=== PATIENT | female | born 1955 | race Caucasian/White ===

== ENCOUNTER → 2016-12-11 | Outpatient (CLI) | payer BC ==
--- NOTE | 2016-12-14 06:56 | MM ---
Reason for exam: history of breast cancer, mastectomy. Last mammogram was performed 1 year ago. History: Patient is postmenopausal and has history of breast cancer at age 49. Family history of breast cancer in paternal aunt at age 70. Benign right mammotome panel of the right breast, June 01, 2008. Excisional biopsy of the right breast, March 08, 2007. Benign US right core biopsy of the right breast, February 14, 2007. Mastectomy of the left breast, 2004. Chemotherapy, 2004. Radiation therapy, 2004. Took hormonal contraceptives for 6 years beginning at age 22. Physical Findings: Nurse did not find any significant physical abnormalities on exam. MG 3D Diag Mammo W/Cad RT CC and MLO view(s) were taken of the right breast. Prior study comparison: December 06, 2015, right breast MG 3d diag mammo w/cad RT. November 28, 2014, right breast MG diagnostic mammo RT w CAD. The breast tissue is heterogeneously dense. This may lower the sensitivity of mammography. Finding #1: Architectural distortion in the right breast consistent with known lumpectomy. Finding #2: There are typically benign round calcifications in the right breast. Previous mammotome biopsy in the right breast x 2. There is a chronic nodularity in the right breast. There is no discrete abnormality. These results were verbally communicated with the patient and result sheet given to the patient on 12/11/16. ASSESSMENT: Benign, BI-RAD 2 RECOMMENDATION: Follow-up diagnostic mammogram of the right breast in 1 year.
== END | disposition home or self-care (01) ==
LOC: RADMAMWWP 14:28
PROVIDERS: ATTEND Internal Medicine Hematology & Oncology
DX: Z85.3 Personal history of malignant neoplasm of breast (principal)
CPT/HCPCS: G0206; G0279

== ENCOUNTER → 2018-02-24 | Outpatient (CLI) | payer BC ==
--- NOTE | 2018-02-25 07:01 | XR ---
EXAMINATION TYPE: XR cervical spine comp DATE OF EXAM: 02/24/2018 TECHNIQUE: Frontal, lateral, oblique, and open mouth view of the cervical spine are obtained. HISTORY: M47.892 cervical spondylosis DJD with pain per patient. COMPARISON: None FINDINGS: The cervical spine is visualized in its entirety from C1 thru the top of T1 level, there i s reversal of normal cervical curvature centered at C4-C5 level without evidence of acute fracture or dislocation. There is grade 1 anterolisthesis of C3 on C4 and grade 1 retrolisthesis of C5 on C6 The pre-vertebral soft tissue appears within normal limits. The C1-C2 articulation is within normal blackwell its on the open mouth view. Vertebral body heights are maintained. There is moderate disc space narro wing and spurring C4-C5 level. There is advanced disc space narrowing with moderate spurring C5-C6 le brennan. There is mild to moderate disc space narrowing C6-C7 level . The oblique images show some neural foraminal encroachment bilaterally worse on right side due to marginal osteophytes mid cervical leve ls. Overlying soft tissue is unremarkable. IMPRESSION: Loss of normal cervical curvature with multilevel degenerative changes seen as detailed a wai.
== END | disposition home or self-care (01) ==
LOC: RADXRMAIN 15:31
PROVIDERS: ATTEND Internal Medicine Geriatric Medicine
DX: M48.02 Spinal stenosis, cervical region (principal); M43.12 Spondylolisthesis, cervical region; M47.812 Spondylosis without myelopathy or radiculopathy, cervical region
CPT/HCPCS: 72050

== ENCOUNTER → 2018-02-26 | Outpatient (CLI) | payer BC ==
[2018-02-26 09:14] LABS: Basophils # (A) 0.1 k/uL (0-0.2); Basophils % (A) 1 %; Eosinophils # (A) 0.2 k/uL (0-0.7); Eosinophils % (A) 4 %; HCT 43.8 % (34.0-46.0); HGB 14.5 gm/dL (11.4-16.0); Lymphocytes # (A) 1.9 k/uL (1.0-4.8); Lymphocytes % (A) 37 %; MCH 29.8 pg (25.0-35.0); MCV 90.2 fL (80.0-100.0); Mean Platelet Volume 6.7; Monocytes # (A) 0.4 k/uL (0-1.0); Monocytes % (A) 7 %; Neutrophils # (A) 2.5 k/uL (1.3-7.7); Neutrophils % (A) 48 %; Platelet Count 246 k/uL (150-450); RBC 4.86 m/uL (3.80-5.40); RDW 13.4 % (11.5-15.5); WBC 5.2 k/uL (3.8-10.6)
[2018-02-26 10:08] LABS: T4, Free (Free Thyroxine) 1.03 ng/dL (0.78-2.19)
[2018-02-26 10:28] LABS: Glucose 80 mg/dL (74-99)
[2018-02-26 10:29] LABS: ALT 20 U/L (9-52); AST 21 U/L (14-36); Albumin 4.1 g/dL (3.5-5.0); Alkaline Phosphatase 61 U/L (38-126); Anion Gap 9 mmol/L; Blood Urea Nitrogen 20 mg/dL (7-17); Calcium 9.6 mg/dL (8.4-10.2); Carbon Dioxide 30 mmol/L (22-30); Chloride 105 mmol/L (98-107); Cholesterol 158 mg/dL (<200); Creatine Kinase 41 U/L (30-135); Magnesium 2.1 mg/dL (1.6-2.3); Potassium 4.2 mmol/L (3.5-5.1); Sodium 144 mmol/L (137-145); Total Bilirubin 0.5 mg/dL (0.2-1.3); Total Protein 6.7 g/dL (6.3-8.2); Uric Acid 4.3 mg/dL (3.7-7.4)
[2018-02-26 10:30] LABS: HDL Cholesterol 57 mg/dL (40-60); LDL Cholesterol,Calculated 88 mg/dL (0-99); Triglycerides 65 mg/dL (<150)
[2018-02-26 11:01] LABS: Appearance,Urine Clear (Clear); Bilirubin,Urine Negative (Negative); Blood,Urine Negative (Negative); Color,Urine Yellow; Glucose,Urine (UA) Negative (Negative); Ketones,Urine Negative (Negative); Leukocyte Esterase,Urine Negative (Negative); Nitrite,Urine Negative (Negative); Protein,Urine Negative (Negative); Specific Gravity,Urine 1.016 (1.001-1.035); Urobilinogen,Urine <2.0 mg/dL (<2.0)
[2018-02-26 21:41] LABS: Hemoglobin A1C 5.6 % (4.0-6.0)
== END | disposition home or self-care (01) ==
LOC: LABWHC1 08:14
PROVIDERS: ATTEND Internal Medicine
DX: Z00.00 Encounter for general adult medical examination without abnormal findings (principal); I10 Essential (primary) hypertension; E55.9 Vitamin D deficiency, unspecified; E03.9 Hypothyroidism, unspecified
CPT/HCPCS: 36415; 80053; 80061; 81003; 82306; 82550; 83036; 83735; 84439; 84443; 84550; 85025

== ENCOUNTER → 2018-03-07 | Outpatient (CLI) | payer BC ==
--- NOTE | 2018-03-08 08:53 | BD ---
EXAMINATION TYPE: MG DEXA axial skeleton. DATE OF EXAM: 03/07/2018 COMPARISON: DEXA bone scan February 28, 2013 CLINICAL HISTORY: Postmenopausal female Height: 68.5 IN Weight: 176 LBS FRAX RISK QUESTIONS: Alcohol (3 or more units per day): NO Family History (Parent hip fracture): NO Glucocorticoids (More than 3mos): NO (Ex: prednisone, prednisolone, methylprednisolone, dexamethasone, and hydrocortisone). History of Fracture in Adulthood: NO Secondary Osteoporosis: 1. Type 1 Diabetes: NO 2. Hyperthyroidism: NO 3. Menopause before 45: NO AGE 58 4. Malnutrition: NO 5. Chronic liver disease: NO Rheumatoid Arthritis: NO Current Tobacco Use: NO RISK FACTORS HISTORY OF: Active: YES Postmenopausal woman: AGE 58 MEDICATIONS: Thyroid Medications: YES Which medication: Synthroid How Lon YEARS Osteoporosis Medications: NOT NOW Which medication: Boniva How Long: AGE 56 - 58 Additional Medications: VIT D, SYNTHROID, LISINOPRIL, SINGULAIR, NAPROXEN, PEPCID Additional History: PT HAD BREAST CANCER WITH CHEMO AND RADIATION IN 2004 EXAM MEASUREMENTS: Bone mineral densitometry was performed using the [employer] System. Bone mineral density as measured about the Lumbar spine is: ----- L1-L4(G/cm2): 1.000 T Score Values are as follows: ----- L2: -1.8 ----- L3: -1.4 ----- L4: -1.4 ----- L1-L4: -1.5 Bone mineral density has: Decreased -3.5% since study of: 02/28/2013 Bone mineral density about the R hip (g/cm2): 0.936 Bone mineral density about the L hip (g/cm2): 0.933 T Score values are as follows: -----R Neck: -0.7 -----L Neck: -0.8 -----R Total: -0.9 -----L Total: -1.2 Bone mineral density has: Decreased -4.5% since study of: 02/28/2013 IMPRESSION: Osteopenia (T Score between -2.5 and -1) persists overall in the low back. Bone density is decreased or diminished from prior. There is slightly increased risk of fracture and the patient may be considered for treatment. Re-Screen 2-5 years. NOTE: T-SCORE=SD OF THE YOUNG ADULT MEAN.
== END | disposition home or self-care (01) ==
LOC: RADBDWWP 15:26
PROVIDERS: ATTEND Internal Medicine
DX: M85.88 Other specified disorders of bone density and structure, other site (principal)
CPT/HCPCS: 77080

== ENCOUNTER → 2018-12-14 | Outpatient (CLI) | payer BC ==
--- NOTE | 2018-12-15 08:57 | MM ---
Reason for exam: additional evaluation requested from prior study. Last mammogram was performed 1 year ago. History: Patient is postmenopausal and has history of breast cancer at age 49. Family history of breast cancer in paternal aunt at age 70. Benign right mammotome panel of the right breast, June 01, 2008. Excisional biopsy of the right breast, March 08, 2007. Benign US right core biopsy of the right breast, February 14, 2007. Mastectomy of the left breast, 2004. Chemotherapy, 2004. Radiation therapy, 2004. Took hormonal contraceptives for 6 years beginning at age 22. Physical Findings: Nurse did not find any significant physical abnormalities on exam. MG 3D Diag Mammo W/Cad RT CC and MLO view(s) were taken of the right breast. Prior study comparison: December 13, 2017, right breast MG 3d diag mammo w/cad RT. December 11, 2016, right breast MG 3d diag mammo w/cad RT. The breast tissue is extremely dense which could obscure a lesion on mammography. Stable benign calcifications. Previous mammotome biopsy in the right breast. No significant new findings when compared with previous films. These results were verbally communicated with the patient and result sheet given to the patient on 12/14/18. ASSESSMENT: Benign, BI-RAD 2 RECOMMENDATION: Follow-up diagnostic mammogram of the right breast in 1 year.
== END | disposition home or self-care (01) ==
LOC: RADMAMWWP 15:13
PROVIDERS: ATTEND Internal Medicine Hematology & Oncology
DX: Z08 Encounter for follow-up examination after completed treatment for malignant neoplasm (principal); Z85.3 Personal history of malignant neoplasm of breast
CPT/HCPCS: 77061; 77065

== ENCOUNTER → 2019-04-06 | Outpatient (CLI) | payer BC | LOC: LABWHC1 16:21 | PROVIDERS: ATTEND Physical Medicine & Rehabilitation | DX: G62.82 Radiation-induced polyneuropathy (principal); M79.671 Pain in right foot | CPT/HCPCS: 36415; 82607; 84207 ==

== ENCOUNTER → 2019-12-15 | Outpatient (CLI) | payer BC ==
--- NOTE | 2019-12-15 16:10 | MM ---
Reason for exam: additional evaluation requested from prior study. Last mammogram was performed 1 year ago. History: Patient is postmenopausal and has history of breast cancer at age 49. Family history of breast cancer in paternal aunt at age 70. Benign right mammotome panel of the right breast, June 01, 2008. Excisional biopsy of the right breast, March 08, 2007. Benign US right core biopsy of the right breast, February 14, 2007. Mastectomy of the left breast, 2004. Chemotherapy, 2004. Radiation therapy, 2004. Took hormonal contraceptives for 6 years beginning at age 22. Physical Findings: Nurse did not find any significant physical abnormalities on exam. MG 3D Diag Mammo W/Cad RT CC and MLO view(s) were taken of the right breast. Prior study comparison: December 14, 2018, right breast MG 3d diag mammo w/cad RT. December 13, 2017, right breast MG 3d diag mammo w/cad RT. The breast tissue is extremely dense which could obscure a lesion on mammography. Previous mammotome biopsy in the right and left breast. There is chronic nodularity in the right breast. Moles marked. No significant new findings when compared with previous films. These results were verbally communicated with the patient and result sheet given to the patient on 12/15/19. ASSESSMENT: Benign, BI-RAD 2 RECOMMENDATION: Follow-up diagnostic mammogram of the right breast in 1 year.
== END | disposition home or self-care (01) ==
LOC: RADMAMWWP 15:18
PROVIDERS: ATTEND Internal Medicine Hematology & Oncology
DX: Z08 Encounter for follow-up examination after completed treatment for malignant neoplasm (principal); Z85.3 Personal history of malignant neoplasm of breast
CPT/HCPCS: 77061; 77065

== ENCOUNTER → 2020-05-28 | Outpatient (CLI) | payer BC ==
--- NOTE | 2020-05-28 16:56 | BD ---
EXAMINATION TYPE: Axial Bone Density DATE OF EXAM: 05/28/2020 COMPARISON: Higher DEXA bone scan March 07, 2018. CLINICAL HISTORY: Postmenopausal female. Height: 5 FT 9 IN Weight: 185 FRAX RISK QUESTIONS: Alcohol (3 or more units per day): NO Family History (Parent hip fracture): NO Glucocorticoids (More than 3mos): NO (Ex: prednisone, prednisolone, methylprednisolone, dexamethasone, and hydrocortisone). History of Fracture in Adulthood: NO Secondary Osteoporosis: 1. Type 1 Diabetes: NO 2. Hyperthyroidism: NO 3. Menopause before 45: NO 4. Malnutrition: NO 5. Chronic liver disease: NO Rheumatoid Arthritis: NO Current Tobacco Use: NO RISK FACTORS HISTORY OF: Active: NO Postmenopausal woman: APPROX AGE 58 MEDICATIONS: Thyroid Medications: YES Which medication: LEVOTHYROXINE How Long: APPROX 17 YEARS Additional Medications: LEVOTHYROXINE, LISINOPRIL, SINGULAIR, MUSCLE RELAXER ,PEPCID, Additional History: BREAST CANCER 2004 CHEMO AND RADIATION EXAM MEASUREMENTS: Bone mineral densitometry was performed using the [employer] System. Bone mineral density as measured about the Lumbar spine is: ----- L1-L4(G/cm2): 0.985 T Score Values are as follows: ----- L2: -1.8 ----- L3: -1.3 ----- L4: -1.8 ----- L1-L4: -1.6 Bone mineral density has: DECREASED -1.7 % since study of: 2017 Bone mineral density about the R hip (g/cm2): 0.914 Bone mineral density about the L hip (g/cm2): 0.911 T Score values are as follows: -----R Neck: -0.9 -----L Neck: -0.9 -----R Total: -1.1 -----L Total: -1.0 Bone mineral density has: 0% since study of: 2017 IMPRESSION: Osteopenia (T Score between -2.5 and -1) remains present. Bone density slightly decreased from prior. There remains slightly increased risk of fracture and the patient may be considered for treatment. Re-Screen 2-5 years. NOTE: T-SCORE=SD OF THE YOUNG ADULT MEAN.
== END | disposition home or self-care (01) ==
LOC: RADBDWWP 01-15 13:03
PROVIDERS: ATTEND Internal Medicine
DX: M81.0 Age-related osteoporosis without current pathological fracture (principal)
CPT/HCPCS: 77080

== ENCOUNTER → 2020-12-16 | Outpatient (CLI) | payer BC ==
--- NOTE | 2020-12-16 14:20 | MM ---
Reason for exam: additional evaluation requested from prior study. Last mammogram was performed 1 year ago. History: Patient is postmenopausal and has history of breast cancer at age 49. Family history of breast cancer in paternal aunt at age 70. Benign right mammotome panel of the right breast, June 01, 2008. Excisional biopsy of the right breast, March 08, 2007. Benign US right core biopsy of the right breast, February 14, 2007. Mastectomy of the left breast, 2004. Chemotherapy, 2004. Radiation therapy, 2004. Took hormonal contraceptives for 6 years beginning at age 22. Physical Findings: Nurse did not find any significant physical abnormalities on exam. MG 3D Diag Mammo W/Cad RT CC and MLO view(s) were taken of the right breast. Prior study comparison: December 15, 2019, right breast MG 3d diag mammo w/cad RT. December 14, 2018, right breast MG 3d diag mammo w/cad RT. The breast tissue is heterogeneously dense. This may lower the sensitivity of mammography. Previous mammotome biopsy in the right breast x 2. There is chronic nodularity in the right breast. No significant new findings when compared with previous films. These results were verbally communicated with the patient and result sheet given to the patient on 12/16/20. ASSESSMENT: Benign, BI-RAD 2 RECOMMENDATION: Follow-up diagnostic mammogram of the right breast in 1 year.
== END | disposition home or self-care (01) ==
LOC: RADMAMWWP 13:22
PROVIDERS: ATTEND Internal Medicine Hematology & Oncology
DX: Z08 Encounter for follow-up examination after completed treatment for malignant neoplasm (principal); Z85.3 Personal history of malignant neoplasm of breast
CPT/HCPCS: 77061; 77065

== ENCOUNTER → 2021-12-18 | Outpatient (CLI) | payer BC ==
--- NOTE | 2021-12-19 10:45 | MM ---
Reason for exam: additional evaluation requested from prior study. Last mammogram was performed 1 year ago. History: Patient is postmenopausal and has history of breast cancer at age 49. Family history of breast cancer in paternal aunt at age 70. Benign right mammotome panel of the right breast, June 01, 2008. Excisional biopsy of the right breast, March 08, 2007. Benign US right core biopsy of the right breast, February 14, 2007. Mastectomy of the left breast, 2004. Chemotherapy, 2004. Radiation therapy, 2004. Took hormonal contraceptives for 6 years beginning at age 22. Physical Findings: Nurse did not find any significant physical abnormalities on exam. MG 3D Diag Mammo W/Cad RT CC and MLO view(s) were taken of the right breast. Prior study comparison: December 16, 2020, right breast MG 3d diag mammo w/cad RT. December 15, 2019, right breast MG 3d diag mammo w/cad RT. The breast tissue is heterogeneously dense. This may lower the sensitivity of mammography. Previous mammotome biopsy in the right breast x 2. Superior posterior mole. Chronic nodularity laterally. Punctate grouped calcifications inferior right breast unchanged. These results were verbally communicated with the patient and result sheet given to the patient on 12/18/21. ASSESSMENT: Incomplete: need additional imaging evaluation, BI-RAD 0 RECOMMENDATION: Ultrasound of the right breast. (given left breast history and dense tissues)
--- NOTE | 2021-12-19 10:47 | USB ---
Reason for exam: additional evaluation requested from abnormal screening. History: Patient is postmenopausal and has history of breast cancer at age 49. Family history of breast cancer in paternal aunt at age 70. Benign right mammotome panel of the right breast, June 01, 2008. Excisional biopsy of the right breast, March 08, 2007. Benign US right core biopsy of the right breast, February 14, 2007. Mastectomy of the left breast, 2004. Chemotherapy, 2004. Radiation therapy, 2004. Took hormonal contraceptives for 6 years beginning at age 22. US Breast RT Right complete breast ultrasound includes all four quadrants, the retroareolar region and axilla. Finding demonstrates no cystic or solid lesion seen. Whole breast scanned, very dense. These results were verbally communicated with the patient and result sheet given to the patient on 12/18/21. ASSESSMENT: Benign, BI-RAD 2 RECOMMENDATION: Follow-up diagnostic mammogram of the right breast in 1 year.
== END | disposition home or self-care (01) ==
LOC: RADMAMWWP 13:04
PROVIDERS: ATTEND Internal Medicine Hematology & Oncology
DX: R92.8 Other abnormal and inconclusive findings on diagnostic imaging of breast (principal); Z78.0 Asymptomatic menopausal state; Z85.3 Personal history of malignant neoplasm of breast; Z80.3 Family history of malignant neoplasm of breast
CPT/HCPCS: 77061; 77065

== ENCOUNTER → 2021-12-18 | Outpatient (CLI) | payer BC ==
--- NOTE | 2021-12-18 13:25 | CT ---
EXAMINATION TYPE: CT sinus wo con DATE OF EXAM: 12/18/2021 COMPARISON: NONE HISTORY: Chronic sinusitis. Facial pain per patient. CT DLP: 699 mGycm. Automated Exposure Control for Dose Reduction was Utilized. TECHNIQUE: CT scan of the sinuses is performed without contrast, axial images are obtained, coronal r eformatted images are also reviewed. FINDINGS: The paranasal sinuses including the frontal, ethmoid, sphenoid, and maxillary sinuses bila terally are well-aerated without suspicious opacification or air-fluid levels. Mild residual mucosal thickening in the surgically treated ethmoid sinuses is present. The ostiomeatal surgically treated o stiomeatal complex is patent bilaterally on the coronal images. Visualized portion of mastoid air cells show no abnormal opacification. The globes are intact bilate rally. IMPRESSION: No recurrent acute sinusitis. Surgically treated ostiomeatal complexes are patent bilate rally.
== END | disposition home or self-care (01) ==
LOC: RADCTMAIN 12:38
PROVIDERS: ATTEND Otolaryngology
DX: J32.9 Chronic sinusitis, unspecified (principal)
CPT/HCPCS: 70486

== ENCOUNTER → 2022-03-20 | Outpatient (CLI) | payer BC ==
--- NOTE | 2022-03-23 09:52 | BD ---
EXAMINATION TYPE: Axial Bone Density DATE OF EXAM: 03/20/2022 COMPARISON: Prior DEXA bone scan 2019 CLINICAL HISTORY: 66 years year old Female. ICD-10 CODE: M85.851 OT DISRD OF BONE DENSITY AND STRUC TURE Height: 69 Weight: 169.2 FRAX RISK QUESTIONS: Alcohol (3 or more units per day): NO Family History (Parent hip fracture): NO Glucocorticoids (More than 3mos): NO History of Fracture in Adulthood: NO Secondary Osteoporosis: 1. Type 1 Diabetes: NO 2. Hyperthyroidism: NO 3. Menopause before 45: NO 4. Malnutrition: NO 5. Chronic liver disease: NO Rheumatoid Arthritis: NO Current Tobacco Use: NO RISK FACTORS HISTORY OF: Hip Fracture (Right/Left): NO Spine Fracture: NO History of Wrist Fracture: NO Surgery to Spine/Hip(right/left)/Wrist (right/left): NO Family History of Osteoporosis: NO Active: NO Diet low in dairy products/other sources of calcium: YES Postmenopausal woman: YES Take estrogen and/or progesterone medications: NO Lost more than 2 inches in height since high school: NO Frequent falls: NO Poor Health: NO Hyperparathyroidism: NO Adrenal Insufficiency: NO MEDICATIONS: Prednisone or other steroids: NO Thyroid Medications: SYNTHROID How Lon YEARS Osteoporosis Medications: NO Additional Medications: CALCIUM, SYNTHROID, LISINOPRIL, VIT D, MULTI VIT., Additional History: EXAM MEASUREMENTS: Bone mineral densitometry was performed using the [employer] System. Bone mineral density as measured about the Lumbar spine is: ----- L1-L4(G/cm2): 0.958 T Score Values are as follows: ----- L1: -1.9 ----- L2: -2.1 ----- L3: -1.6 ----- L4: -2.0 ----- L1-L4: -1.9 Bone mineral density has: DECREASED 3.4% since study of: 05/28/2020 Bone mineral density about the R hip (g/cm2): 0.875 Bone mineral density about the L hip (g/cm2): 0.883 T Score values are as follows: -----R Neck: -1.2 -----L Neck: -1.1 -----R Total: -1.2 -----L Total: -1.5 Bone mineral density has: DECREASED 4.9% since study of: 05/28/2020 FRAX%s: The graph provided illustrates a 8.2% chance for a major osteoporotic fx and a 0.7% chance fo r the hips probability for fx in 10 years time. IMPRESSION: Osteopenia (T Score between -2.5 and -1) is redemonstrated. There is slightly increased risk of fracture and the patient may be considered for treatment. Re-Screen 2-5 years. NOTE: T-SCORE=SD OF THE YOUNG ADULT MEAN.
== END | disposition home or self-care (01) ==
LOC: RADBDWWP 14:42
PROVIDERS: ATTEND Internal Medicine
DX: M85.89 Other specified disorders of bone density and structure, multiple sites (principal)
CPT/HCPCS: 77080

== ENCOUNTER → 2023-05-08 | Outpatient (CLI) | payer MEDICARE ==
[2023-05-08 13:34] LABS: Basophils # (A) 0.08 X 10*3/uL (0.00-0.10); Basophils % (A) 1.4 %; Eosinophils # (A) 0.19 X 10*3/uL (0.04-0.35); Eosinophils % (A) 3.4 %; HCT 44.3 % (37.2-46.3); HGB 14.1 d/dL (12.0-15.0); Immature Grans, Automated 0 %; Lymphocytes # (A) 2.12 X 10*3/uL (0.90-5.00); Lymphocytes % (A) 37.4 %; MCH 30.7 pg (27.0-32.0); MCHC 31.8 d/dL (32.0-37.0); MCV 96.5 FL (80.0-97.0); Mean Platelet Volume 9.8 FL (9.5-12.2); Monocytes # (A) 0.45 X 10*3/uL (0.20-1.00); Monocytes % (A) 7.9 %; NRBC Per 100 WBC 0 X 10*3/uL (0.00-0.01); Neutrophils # (A) 2.83 X 10*3/uL (1.80-7.70); Neutrophils % (A) 49.9 %; Platelet Count 286 X 10*3/uL (140-440); RBC 4.59 X 10*6/uL (4.10-5.20); RDW 13.8 % (11.5-14.5); WBC 5.67 X 10*3/uL (4.50-10.00)
[2023-05-08 13:38] LABS: ALT 21 U/L (8-44); AST 18 U/L (13-35); Albumin 4.6 d/dL (3.8-4.9); Alkaline Phosphatase 69 U/L (41-126); BUN/Creat Ratio 24.43 Ratio (12.00-20.00); Blood Urea Nitrogen 17.1 mg/dL (9.0-27.0); Calcium 9.9 mg/dL (8.7-10.3); Carbon Dioxide 29.5 mmol/L (21.6-31.8); Chloride 105 mmol/L (96-109); Chol/HDL Ratio 2.89 Ratio; Globulin 2.3 d/dL (1.6-3.3); Glucose 96 mg/dL (70-110); LDL Cholesterol,Calculated 102.3 mg/dL (0.0-131.0); Magnesium 2.2 mg/dL (1.5-2.4); Potassium 4.7 mmol/L (3.5-5.5); Sodium 144 mmol/L (135-145); Total Bilirubin 0.4 mg/dL (0.3-1.2); Total Protein 6.9 d/dL (6.2-8.2)
[2023-05-08 13:58] LABS: Appearance,Urine Clear (Clear); Bilirubin,Urine Negative (Negative); Blood,Urine Negative (Negative); Color,Urine Yellow (Yellow); Ketones,Urine Negative (Negative); Nitrite,Urine Negative (Negative); PH, Urine 6.5; Specific Gravity,Urine 1.023 (1.001-1.030); Urobilinogen,Urine 0.2 E.U./DL
[2023-05-08 14:04] LABS: Bacteria,Urine None Seen (None Seen)
== END | disposition home or self-care (01) ==
LOC: LABWHC1 08:39
PROVIDERS: ATTEND Internal Medicine
DX: I10 Essential (primary) hypertension (principal); E03.9 Hypothyroidism, unspecified; R30.0 Dysuria; R73.09 Other abnormal glucose
CPT/HCPCS: 36415; 80053; 80061; 81001; 83036; 83735; 85025

== ENCOUNTER → 2023-05-20 | Outpatient (CLI) | payer MEDICARE ==
--- NOTE | 2023-05-20 20:03 | XR ---
EXAMINATION TYPE: XR cervical spine w flex/ext DATE OF EXAM: 05/20/2023 COMPARISON: NONE HISTORY: 67 year-old female [id number] TECHNIQUE: 7 views FINDINGS: No predental space widening or prevertebral soft tissue swelling. Reversal of the normal ce rvical lordosis. Multilevel facet and uncovertebral joint arthropathy is present. Degenerative grade 1 anterolisthesis C3-C4 and C7-T1. Degenerative grade 1 retrolisthesis C5-C6. No d ynamic subluxations seen. There is moderate disc/endplate degenerative change C4-C7 levels. IMPRESSION: 1. Moderate spondylotic change especially C4-C7 levels. 2. Degenerative grade 1 spondylolisthesis C3-C4, C5-C6, and C7-T1 without evidence for dynamic sublux ation.
== END | disposition home or self-care (01) ==
LOC: RADXRMAIN 13:52
PROVIDERS: ATTEND Internal Medicine
DX: M47.812 Spondylosis without myelopathy or radiculopathy, cervical region (principal); M43.12 Spondylolisthesis, cervical region
CPT/HCPCS: 72052

== ENCOUNTER → 2023-12-22 | Outpatient (CLI) | payer MEDICARE ==
--- NOTE | 2023-12-22 21:53 | MM ---
Reason for Exam: Screening (asymptomatic). Last screening mammogram was performed 12 month(s) ago. Patient History: Menarche at age 14. First Full-Term at age 30. Postmenopausal. Patient has history of breast feeding. Breast cancer, left, age 49. Previous chest radiation therapy at age 49. Previous chemotherapy at age 49. Hormonal Contraceptives for 6 years from age 22 until age 28. 03/08/2007, Excisional Biopsy on the Right side. 2004, Mastectomy on the Left side. 06/01/2008, Benign Core Biopsy on the right side. 02/14/2007, Benign Core Biopsy on the right side. 2004, Radiation Therapy. 2004, Chemotherapy. Paternal aunt had breast cancer, age 70. Prior Study Comparison: 12/16/2020 Right Diagnostic Mammogram, [facility]. 12/18/2021 Right Diagnostic Mammogram, [facility]. 12/21/2022 Right MG 3D scr lisa unilateral w/cad., [facility]. Tissue Density: Right: The breast tissue is heterogeneously dense. This may lower the sensitivity of mammography. Findings: 2 microclips from prior biopsies. There is chronic underlying nodularity. There is no suspicious group of microcalcifications or new suspicious mass in either breast. Overall Assessment: Benign, BI-RAD 2 Management: Screening Mammogram of the right breast in 1 year. . Patient should continue monthly self-breast exams. A clinical breast exam by your physician is recommended on an annual basis. This exam should not preclude additional follow-up of suspicious palpable abnormalities. Electronically signed and approved by: Manjit Soto M.D. Radiologist
== END | disposition home or self-care (01) ==
LOC: RADMAMWWP 14:29
PROVIDERS: ATTEND Internal Medicine Hematology & Oncology
DX: Z12.31 Encounter for screening mammogram for malignant neoplasm of breast (principal); Z80.3 Family history of malignant neoplasm of breast; Z85.3 Personal history of malignant neoplasm of breast; Z90.12 Acquired absence of left breast and nipple; Z78.0 Asymptomatic menopausal state
CPT/HCPCS: 77067

== ENCOUNTER → 2024-06-28 | Outpatient (CLI) | payer MEDICARE ==
--- NOTE | 2024-08-18 12:12 | CA ---
Transthoracic Echo Report Name: Luna Shah Age: 68 Gender: F : 1955 Exam Date: 06/28/2024 08:59 Exam Location: [facility] Ht (in): 69 Wt (lb): 175 Ordering Physician: Attending/Referring Phys: Human Resources Executive Assistant Briana Parker RDCS Procedure CPT: Indications: Cardiac Hx: Technical Quality: Fair Contrast 1: Total Dose (mL): Contrast 2: Total Dose (mL): MEASUREMENTS (Male / Female) Normal Values 2D ECHO LV Diastolic Diameter PLAX 4.0 cm 4.2 - 5.9 / 3.9 - 5.3 cm LV Systolic Diameter PLAX 2.5 cm IVS Diastolic Thickness 1.1 cm 0.6 - 1.0 / 0.6 - 0.9 cm LVPW Diastolic Thickness 1.1 cm 0.6 - 1.0 / 0.6 - 0.9 cm LV Relative Wall Thickness 0.6 RV Internal Dim ED PLAX 2.6 cm LA Volume 72.6 cm??? 18 - 58 / 22 - 52 cm??? LA Volume Index 36.7 cm???/m??? 16 - 28 cm???/m??? M-MODE Aortic Root Diameter MM 3.1 cm LA Systolic Diameter MM 3.9 cm LA Ao Ratio MM 1.3 AV Cusp Separation MM 2.3 cm DOPPLER AV Peak Velocity 113.0 cm/s AV Peak Gradient 5.1 mmHg AV Mean Velocity 72.1 cm/s AV Mean Gradient 2.4 mmHg AV Velocity Time Integral 20.8 cm LVOT Peak Velocity 96.7 cm/s LVOT Peak Gradient 3.7 mmHg LVOT Velocity Time Integral 23.3 cm MV Area PHT 2.1 cm??? Mitral E Point Velocity 59.4 cm/s Mitral A Point Velocity 87.1 cm/s Mitral E to A Ratio 0.7 MV Deceleration Time 355.6 ms MV E' Velocity 4.5 cm/s Mitral E to MV E' Ratio 13.2 TR Peak Velocity 220.6 cm/s TR Peak Gradient 19.5 mmHg Right Ventricular Systolic Press 24.5 mmHg FINDINGS Left Ventricle Left ventricular cavity size normal. Normal left ventricular systolic function with no obvious regional wall motion abnormalities. Left ventricular ejection fraction is estimated at 55-60 %.normal left ventricular diastolic filling pattern. Right Ventricle Normal right ventricular size and function. Right Atrium Normal right atrial size. Left Atrium Moderately increased left atrial volume. Mildly increased left atrial area. Mitral Valve Structurally normal mitral valve. Mitral valve thickened. Moderate mitral regurgitation.mild prolapse of the posterior mitral valve leaflet. Aortic Valve Trileaflet aortic valve. No aortic valve stenosis or regurgitation. Tricuspid Valve Structurally normal tricuspid valve. Mild tricuspid regurgitation. Pulmonic Valve Structurally normal pulmonic valve. Pericardium No pericardial effusion. Aorta Normal size aortic root and proximal ascending aorta. CONCLUSIONS 1. Normal left ventricular size and systolic function 2. Mild prolapse of the posterior mitral valve leaflets with moderate mitral regurgitation 3. Mild tricuspid regurgitation Previewed by: Dr. Boby Ornelas MD (Electronically Signed) Final Date: 29 June 2024 07:39
== END | disposition home or self-care (01) ==
LOC: RADECHMAIN 08:38
PROVIDERS: ATTEND Internal Medicine
DX: I34.0 Nonrheumatic mitral (valve) insufficiency
CPT/HCPCS: 93306

== ENCOUNTER → 2024-09-06 | Outpatient (CLI) | payer MEDICARE ==
--- NOTE | 2024-07-26 15:05 | US ---
Patient: Luna Shah Ordering Physician: Unknown, Unknown ID: [id number] Phone, Pager: Phone: N/A Pager: N/A : 1955 Age/Gender: 68Y, N/A Primary Location: N/A Procedure: US carotid duplex BILAT John dy Date: 06/28/2024 9:30:00 AM EXAMINATION TYPE: US carotid duplex BILAT DATE OF EXAM: 06/28/2024 COMPARISON: NONE CLINICAL INDICATION: Unknown, old with history of ; TECHNIQUE: Carotid duplex ultrasound examination. Indirect Doppler criteria was utilized. reason: stenosis Tech impression: WNL, no stenosis, elevated velocity, plaque Rt ICA/CCA ratio: 0.93 Lt ICA?CCA ratio:1.07 IMPRESSION: No evidence for hemodynamically significant stenosis. Criteria for Assigning % of Stenosis / Diameter reduction (Estimation based on the indirect measurements of the internal carotid artery velocities (ICA PSV). 1. Normal (no stenosis)=ICA PSV < 125 cm/s: ratio < 2.0: ICA EDV<40 cm/s. 2. Less than 50% stenosis=ICA PSV < 125 cm/s: ratio < 2.0: ICA EDV<40 cm/s. 3. 50 to 69% stenosis=ICA PSV of 125 to 230 cm/s: ration 2.0 ? 4.0: ICA EDV 40-100 cm/s. 4. Greater than 70% stenosis to near occlusion= ICA PSV > 230 cm/s: ratio > 4.0: ICA EDV > 100 cm/s. 5. Near occlusion= ICA PSV velocities may be low or undetectable: variable ratio and ICA EDV. 6. Total occlusion=unable to detect flow.
--- NOTE | 2024-09-06 14:25 | BD ---
EXAMINATION TYPE: Axial Bone Density DATE OF EXAM: 09/06/2024 CLINICAL HISTORY: 68 years old Female. ICD-10 CODE: M85.851,I65.23 OCCLUSION AND STENOSIS OF [place] AL , Z78.0 Height: Weight: FRAX RISK QUESTIONS: Family History (Parent hip fracture): yes, mother Glucocorticoids (More than 3mos): yes, nasocort (Ex: prednisone, prednisolone, methylprednisolone, dexamethasone, and hydrocortisone). Secondary Osteoporosis: yes 3. Menopause before 45: yes, at 47 with the breast cancer RISK FACTORS HISTORY OF: left breast cancer, radiation, chemo and perceptin, MEDICATIONS: ca, vit d, bp meds, heart meds, multivitamin, hx of left breast cancer, hx of chemo and radiation, Pe rceptin for one yr, Thyroid Medications: yes, synthroid...13 yrs now EXAM MEASUREMENTS: Bone mineral densitometry was performed using the [facility]. Bone mineral density as measured about the Lumbar spine is: ----- L1-L4(G/cm2): 0.962 T Score Values are as follows: ----- L1: -2.3 ----- L2: -2.4 ----- L3: -1.4 ----- L4: -1.6 ----- L1-L4: -1.8 Z Score Values are as follows: ----- L1: -1.1 ----- L2: -1.2 ----- L3: -0.2 ----- L4: -0.4 ----- L1-L4: -0.6 Bone mineral density has: Increased 0.4% since study of: 03.20.2022 Bone mineral density about the R hip (g/cm2): 0.846 Bone mineral density about the L hip (g/cm2): 0.834 T Score values are as follows: -----R Neck: -1.2 -----L Neck: -1.5 -----R Total: -1.3 -----L Total: -1.4 Z Score values are as follows: -----R Neck: 0.0 -----L Neck: -0.2 -----R Total: -0.3 -----L Total: -0.4 Bone mineral density has: Increased 0.7% since study of: 03.20.2022 FRAX%s: The graph provided illustrates a 25.5% chance for a major osteoporotic fx and a 2.7% chance f or the hips probability for fx in 10 years time. IMPRESSION: Osteopenia (T Score between -2.5 and -1). There is slightly increased risk of fracture and the patient may be considered for treatment. Re-Screen 2-5 years. NOTE: T-SCORE=SD OF THE YOUNG ADULT MEAN. [facility], , 09/06/2024 2:23 PM
== END | disposition home or self-care (01) ==
LOC: RADBDWWP 10:17
PROVIDERS: ATTEND Internal Medicine
DX: M85.851 Other specified disorders of bone density and structure, right thigh (principal); I65.23 Occlusion and stenosis of bilateral carotid arteries; I34.0 Nonrheumatic mitral (valve) insufficiency
CPT/HCPCS: 77080; 93880

== ENCOUNTER → 2025-02-05 | Outpatient (CLI) | payer MEDICARE ==
--- NOTE | 2025-02-05 14:55 | MM ---
Reason for Exam: Screening (asymptomatic). Last mammogram was performed 1 year(s) and 1 month(s) ago. Patient History: Menarche at age 14. First Full-Term at age 30. Postmenopausal. Patient has history of breast feeding. Breast cancer, left, age 49. Previous chest radiation therapy at age 49. Previous chemotherapy at age 49. Hormonal Contraceptives for 6 years from age 22 until age 28. 03/08/2007, Excisional Biopsy on the Right side. 2004, Mastectomy on the Left side. 06/01/2008, Benign Core Biopsy on the right side. 02/14/2007, Benign Core Biopsy on the right side. 2004, Radiation Therapy. 2004, Chemotherapy. Paternal aunt had breast cancer, age 70. Prior Study Comparison: 12/18/2021 Right Diagnostic Mammogram, [facility]. 12/21/2022 Right MG 3D scr lisa unilateral w/cad., [facility]. 12/22/2023 Right MG 3D scr lisa unilateral w/cad., [facility]. Tissue Density: Right: The breasts are extremely dense, which lowers the sensitivity of mammography. Findings: There is no suspicious group of microcalcifications or new suspicious mass in the right breast. Overall Assessment: Benign, BI-RAD 2 Management: Screening Mammogram of the right breast in 1 year. . Patient should continue monthly self-breast exams. A clinical breast exam by your physician is recommended on an annual basis. This exam should not preclude additional follow-up of suspicious palpable abnormalities. Note on Lashell scores and lifetime risk: 1. A Lashell score greater than 3% is considered moderate risk. If this is the case, consider specialist referral to assess eligibility for a risk reducing agent. 2. If overall lifetime risk for the development of breast cancer is 20% or higher, the patient may qualify for future screening with alternating mammogram and breast MRI. [facility], , 02/05/2025 2:52 PM. Electronically signed and approved by: Cory Nicholson M.D. [facility]
== END | disposition home or self-care (01) ==
LOC: RADMAMWWP 13:58
PROVIDERS: ATTEND Internal Medicine Hematology & Oncology
DX: Z12.31 Encounter for screening mammogram for malignant neoplasm of breast (principal); R92.343 Mammographic extreme density, bilateral breasts; Z78.0 Asymptomatic menopausal state; Z80.3 Family history of malignant neoplasm of breast; Z92.0 Personal history of contraception
CPT/HCPCS: 77067

== ENCOUNTER → 2025-04-27 | Outpatient (CLI) | payer MEDICARE ==
[~2025-04-27] MED LIST: SODIUM CHLORIDE 0.9% 250 ML in EMPTY BAG 1 BAG IV PRN
[2025-04-27 13:02] VITALS: BP 134/79; PULSE 64; RESP 18; TEMP 98.6
[2025-04-27] MEDS: SODIUM CHLORIDE 0.9% 500 ML 500 ML in EMPTY BAG 1 BAG IV PRN (13:09)
[2025-04-27] MEDS: ZOLEDRONIC ACID 5 MG in SODIUM CHLORIDE 0.9% 100 ML IV NR (13:10)
== END ==
LOC: PROCWHC3 12:33
PROVIDERS: ATTEND Internal Medicine
DX: M81.0 Age-related osteoporosis without current pathological fracture (principal)
CPT/HCPCS: 96365; J3489